=== PATIENT | female | born 1940 | race Caucasian/White ===

== ENCOUNTER 2017-09-12 13:35 | Outpatient (CLI) | payer MEDICARE, OTHER ==
[2017-09-12] MEDS ORDERED: Iopamidol 370 76% 100 ML VIAL ONE (15:14)
== END 2017-09-12 13:36 | disposition home or self-care (01) ==
LOC: BICCT 13:35
PROVIDERS: ATTEND Internal Medicine Gastroenterology
DX: R19.4 Change in bowel habit (principal); R10.31 Right lower quadrant pain; K57.30 Diverticulosis of large intestine without perforation or abscess without bleeding; N28.9 Disorder of kidney and ureter, unspecified
CPT/HCPCS: 74177

== ENCOUNTER 2020-12-14 12:09 | Observation (INO) | payer MEDICARE, OTHER ==
[2020-12-14 12:49] LABS: #Lymphocytes 1.6 thou/uL (1.20-3.40); #Monocytes 0.6 thou/uL (0.11-0.59); #Neutrophils 3.6 thou/uL (1.40-6.50); %Basophils 0.8 % (0.0-1.0); %Eosinophils 0.8 % (0.0-10.0); %Lymphocytes 27.9 % (21.0-51.0); %Monocytes 9.8 % (0.0-10.0); %Neutrophils 60.7 % (42.0-75.0); Hemoglobin 13.3 g/dL (12.0-16.0); Mean Corpuscular HGB CONC 33.4 g/dL (32.0-36.0); Mean Corpuscular Hemoglobin 30.9 pg (27.0-31.0); Mean Corpuscular Volume 92.6 fL (78.0-98.0); Mean Platelet Volume 7.6 fL (7.4-10.4); Platelet Count 264 thou/uL (130-400); RBC Distribution Width 12.3 % (11.5-14.5); White Blood Cell (WBC) Count 5.9 thou/uL (4.8-10.8)
[2020-12-14 13:11] LABS: ALT (SGPT) 20 U/L (8-55); AST (SGOT) 20 U/L (5-34); Albumin 4.2 g/dL (3.4-4.8); Alkaline Phosphatase 67 U/L (40-110); Anion Gap 13 mmol/L (10-20); BUN (Urea Nitrogen) 20 mg/dL (9.8-20.1); Bilirubin, Total 0.6 mg/dL (0.2-1.2); Calc. Creatinine Clearance 0 mL/min (70-130); Calcium 9.5 mg/dL (7.8-10.44); Carbon Dioxide 24 mmol/L (23-31); Chloride 102 mmol/L (98-107); Globulin 2.5 g/dL (2.4-3.5); Glucose 97 mg/dL (83-110); Lipase 29 U/L (8-78); Protein, Total 6.7 g/dL (5.8-8.1); Sodium 135 mmol/L (136-145)
[2020-12-14] MEDS ORDERED: Aspirin Chewable 81 MG TAB ONE (13:30)
[2020-12-14] MEDS ORDERED: Metoprolol Tartrate 50 MG TAB ONE (13:30)
[2020-12-14] MEDS ORDERED: Ondansetron PF 4 MG/2 ML Vial IVP PRN (14:43)
[2020-12-14] MEDS ORDERED: Acetaminophen 325 MG TAB PO PRN (14:43)
[2020-12-14 16:42] LABS: Troponin I 0.019 ng/mL (< 0.028)
[2020-12-14 19:38] LABS: Troponin I Less than 0.010 ng/mL (< 0.028)
[2020-12-14 20:50] VITALS: BMI 24.9
[2020-12-14] MEDS: Apixaban 5 MG TAB PO SCH (21:35)
[2020-12-14] MEDS: Metoprolol Tartrate 25 MG TAB PO SCH (21:35)
[2020-12-14] MEDS: Atorvastatin Calcium 40 MG TAB PO SCH (21:35)
[2020-12-15 06:53] LABS: SARS-CoV-2 NAA Rapid Test Not Detected (NotDetected)
[2020-12-15 07:11] LABS: #Basophils 0.1 thou/uL (0.0-0.2); #Eosinphils 0.1 thou/uL (0.0-0.7); #Lymphocytes 2.3 thou/uL (1.20-3.40); #Monocytes 0.8 thou/uL (0.11-0.59); #Neutrophils 3.4 thou/uL (1.40-6.50); %Basophils 0.8 % (0.0-1.0); %Eosinophils 2.2 % (0.0-10.0); %Lymphocytes 34.2 % (21.0-51.0); %Monocytes 11.2 % (0.0-10.0); %Neutrophils 51.7 % (42.0-75.0); Hemoglobin 13.3 g/dL (12.0-16.0); Mean Corpuscular HGB CONC 33.1 g/dL (32.0-36.0); Mean Corpuscular Hemoglobin 30.9 pg (27.0-31.0); Mean Corpuscular Volume 93.6 fL (78.0-98.0); Mean Platelet Volume 7.8 fL (7.4-10.4); Platelet Count 279 thou/uL (130-400); RBC Distribution Width 12.3 % (11.5-14.5); Red Blood Cell (RBC) Count 4.31 mill/uL (4.20-5.40); White Blood Cell (WBC) Count 6.7 thou/uL (4.8-10.8)
[2020-12-15 07:33] LABS: Anion Gap 13 mmol/L (10-20); BUN (Urea Nitrogen) 22 mg/dL (9.8-20.1); Calc. Creatinine Clearance 55 mL/min (70-130); Calcium 9.4 mg/dL (7.8-10.44); Carbon Dioxide 27 mmol/L (23-31); Chloride 103 mmol/L (98-107); Glucose 93 mg/dL (83-110); Potassium 4.2 mmol/L (3.5-5.1); Sodium 139 mmol/L (136-145)
[2020-12-15] MEDS ORDERED: PROPOFOL 20 ML ONE (08:54)
[2020-12-15] MEDS: Apixaban 5 MG TAB PO SCH ×3 (08:57→20:38)
[2020-12-15] MEDS: Metoprolol Tartrate 25 MG TAB PO SCH ×3 (08:57→20:36)
[2020-12-15] MEDS ORDERED: Enoxaparin Sodium 40 MG/0.4 ML SYRINGE SC SCH (09:00)
[2020-12-15] MEDS ORDERED: Aspirin 81 mg Enteric Coated Tablet PO SCH (09:00)
[2020-12-15] MEDS ORDERED: Flecainide 50 MG TAB PO SCH (09:45)
[2020-12-15] MEDS: Flecainide 50 MG TAB PO SCH (20:35)
[2020-12-15] MEDS: Atorvastatin Calcium 40 MG TAB PO SCH (20:36)
[2020-12-16] MEDS: diphenhydrAMINE 25 MG CAP PO PRN ×2 (01:56→09:11)
[2020-12-16 06:16] LABS: Cardiac Risk 2.8 (Less than 4.5)
[2020-12-16] MEDS ORDERED: Lisinopril 10 MG TAB PO SCH (09:00)
[2020-12-16] MEDS: Metoprolol Tartrate 25 MG TAB PO SCH (09:09)
[2020-12-16] MEDS: Flecainide 50 MG TAB PO SCH (09:09)
[2020-12-16] MEDS: Apixaban 5 MG TAB PO SCH (09:09)
[2020-12-16 11:50] VITALS: BP 127/57; TEMP 98.5
== END 2020-12-16 15:18 | disposition home or self-care (01) ==
LOC: ERS 12:09 → ERHOLD 14:34 → 2SW 19:33
PROVIDERS: ADMIT Internal Medicine; ATTEND Internal Medicine
PROC: 5A2204Z Restoration of Cardiac Rhythm, Single (ICD-10-PCS; principal; 2020-12-14)
PROC: B24BZZ4 Ultrasonography of Heart with Aorta, Transesophageal (ICD-10-PCS; 2020-12-14)
DX: I48.0 Paroxysmal atrial fibrillation (principal); I08.1 Rheumatic disorders of both mitral and tricuspid valves; I70.0 Atherosclerosis of aorta; Z20.822 Contact with and (suspected) exposure to COVID-19; Z79.82 Long term (current) use of aspirin; Z79.899 Other long term (current) drug therapy; Z88.0 Allergy status to penicillin; Z88.5 Allergy status to narcotic agent; Z88.2 Allergy status to sulfonamides
CPT/HCPCS: 71045; 80048; 80061; 83690; 84484 ×2; 85025; 92960; 93005 ×3; 93312; 94760; 99285; G0378 ×4; U0002; 36415; 80053; 84443; 93010; J2704; U0003; U0005

== ENCOUNTER 2021-06-17 12:20 | Outpatient (CLI) | payer MEDICARE, OTHER ==
[2021-06-17 13:37] LABS: Hemoglobin 11.3 g/dL (12.0-15.5); Mean Corpuscular HGB CONC 33.2 g/dL (32.0-36.0); Mean Corpuscular Hemoglobin 30.1 pg (27.0-33.0); Mean Corpuscular Volume 90.4 fl (81.6-98.3); Platelet Count 276 10x3/uL (150-450); RBC Distribution Width 13.3 % (11.5-14.5); Red Blood Cell (RBC) Count 3.76 10x6/uL (3.90-5.03); White Blood Cell (WBC) Count 6.2 10x3/uL (3.5-10.5)
[2021-06-17 13:50] LABS: Anion Gap 14 mmol/L (10-20); BUN (Urea Nitrogen) 14 mg/dL (9.8-20.1); Calc. Creatinine Clearance 0 mL/min (70-130); Calcium 8.9 mg/dL (7.8-10.44); Carbon Dioxide 26 mmol/L (23-31); Chloride 96 mmol/L (98-107); Glucose 85 mg/dL (83-110); Sodium 131 mmol/L (136-145)
[2021-06-18] LABS: SARS-CoV-2 PCR by NAA Not Detected (NotDetected)
== END 2021-06-17 12:21 | disposition home or self-care (01) ==
LOC: LABBT 12:20
PROVIDERS: ATTEND Internal Medicine Cardiovascular Disease
DX: Z01.812 Encounter for preprocedural laboratory examination (principal); I48.0 Paroxysmal atrial fibrillation; Z20.822 Contact with and (suspected) exposure to COVID-19
CPT/HCPCS: 80048; 85027; U0003; U0005

== ENCOUNTER 2021-06-22 08:46 | Day surgery (SDC) | payer MEDICARE, OTHER ==
[2021-06-22] MEDS ORDERED: PROPOFOL 20 ML ONE (12:50)
[2021-06-22] MEDS ORDERED: Ketamine 50 MG/ML (10ML VIAL) ONE (12:50)
== END 2021-06-22 15:04 | disposition home or self-care (01) ==
LOC: CCL 08:46
PROVIDERS: ATTEND Internal Medicine Cardiovascular Disease
PROC: B246ZZ4 Ultrasonography of Right and Left Heart, Transesophageal (ICD-10-PCS; principal; 2021-06-22)
DX: I48.0 Paroxysmal atrial fibrillation (principal); I08.1 Rheumatic disorders of both mitral and tricuspid valves; G89.29 Other chronic pain; M54.9 Dorsalgia, unspecified; Z79.82 Long term (current) use of aspirin; Z79.899 Other long term (current) drug therapy; Z88.0 Allergy status to penicillin; Z88.1 Allergy status to other antibiotic agents; Z88.2 Allergy status to sulfonamides; Z88.5 Allergy status to narcotic agent; Z98.1 Arthrodesis status; Z95.818 Presence of other cardiac implants and grafts
CPT/HCPCS: 93005; 93010; 93312; J2704

== ENCOUNTER 2021-08-16 11:35 | Outpatient (CLI) | payer MEDICARE, OTHER ==
[2021-08-16 12:44] LABS: #Eosinphils 0.2 10x3/uL (0.0-0.5); #Monocytes 0.6 10x3/uL (0.0-1.1); #Neutrophils 3.4 10x3/uL (1.5-8.4); %Basophils 0.6 % (0.0-2.0); %Eosinophils 3.2 % (0.0-6.0); %Lymphocytes 18.7 % (18.0-47.0); %Monocytes 11.6 % (0.0-10.0); %Neutrophils 65.7 % (40.0-75.0); Hemoglobin 12.1 g/dL (12.0-15.5); Mean Corpuscular HGB CONC 34.5 g/dL (32.0-36.0); Mean Corpuscular Hemoglobin 29.5 pg (27.0-33.0); Mean Corpuscular Volume 85.6 fl (81.6-98.3); Mean Platelet Volume 9.5 fl (7.4-10.4); Platelet Count 295 10x3/uL (150-450); White Blood Cell (WBC) Count 5.2 10x3/uL (3.5-10.5)
[2021-08-16 12:54] LABS: INR-International Normal Ratio 0.9
[2021-08-16 12:55] LABS: Anion Gap 14 mmol/L (10-20); BUN (Urea Nitrogen) 17 mg/dL (9.8-20.1); Calc. Creatinine Clearance 0 mL/min (70-130); Carbon Dioxide 25 mmol/L (23-31); Chloride 97 mmol/L (98-107); Estimated GFR 72; Glucose 88 mg/dL (83-110); Potassium 4.8 mmol/L (3.5-5.1); Sodium 131 mmol/L (136-145)
== END 2021-08-16 11:36 | disposition home or self-care (01) ==
LOC: LABBT 11:35
PROVIDERS: ATTEND Psychiatry & Neurology Neurology
DX: Z01.812 Encounter for preprocedural laboratory examination (principal); I48.91 Unspecified atrial fibrillation; Z20.822 Contact with and (suspected) exposure to COVID-19
CPT/HCPCS: 80048; 85025; 85610; 85730; 87811

== ENCOUNTER 2021-08-19 07:16 | Day surgery (SDC) | payer MEDICARE, OTHER ==
[2021-08-17 12:10] VITALS: BMI 24.7
[2021-08-19] MEDS ORDERED: PROPOFOL 20 ML ONE (08:31)
[2021-08-19] MEDS ORDERED: Lidocaine 1% PF 5 ML VIAL ONE (08:57)
== END 2021-08-19 10:25 | disposition home or self-care (01) ==
LOC: SDC 07:16
PROVIDERS: ATTEND Internal Medicine Cardiovascular Disease
PROC: B24BZZ4 Ultrasonography of Heart with Aorta, Transesophageal (ICD-10-PCS; principal; 2021-08-19)
PROC: 5A2204Z Restoration of Cardiac Rhythm, Single (ICD-10-PCS; 2021-08-19)
DX: I48.0 Paroxysmal atrial fibrillation (principal); I08.3 Combined rheumatic disorders of mitral, aortic and tricuspid valves; I70.0 Atherosclerosis of aorta; I49.3 Ventricular premature depolarization; J45.909 Unspecified asthma, uncomplicated; I10 Essential (primary) hypertension; Z79.899 Other long term (current) drug therapy; Z88.0 Allergy status to penicillin; Z88.1 Allergy status to other antibiotic agents; Z88.5 Allergy status to narcotic agent; Z88.2 Allergy status to sulfonamides
CPT/HCPCS: 92960; 93005; 93010; 93312; J2704

== ENCOUNTER 2021-09-20 13:24 | Outpatient (CLI) | payer MEDICARE, OTHER | END 2021-09-20 13:25 | disposition home or self-care (01) | LOC: MRI 13:24 | PROVIDERS: ATTEND Neurological Surgery | DX: M50.30 Other cervical disc degeneration, unspecified cervical region (principal); M48.02 Spinal stenosis, cervical region; M50.31 Other cervical disc degeneration, high cervical region; M50.21 Other cervical disc displacement, high cervical region; M47.812 Spondylosis without myelopathy or radiculopathy, cervical region; M48.03 Spinal stenosis, cervicothoracic region; M47.813 Spondylosis without myelopathy or radiculopathy, cervicothoracic region | CPT/HCPCS: 72141 ==